=== PATIENT | male | born 1950 | race African-American/Black ===

== ENCOUNTER 2016-07-28 12:03 | Inpatient (IN) | payer OTHER ==
[~2016-07-28] VITALS: Ht 182.9 cm; Wt 152.9 kg
[2016-07-28] MEDS ORDERED: PANTOPRAZOLE SODIUM 40 MG/VIAL IV STA (13:35)
[2016-07-28] MEDS ORDERED: SODIUM CHLORIDE 0.9% 1,000 ML IV ONE (13:35)
[2016-07-28 14:26] LABS: BASOPHILS % 1.7 % (0.0-2.0); EOSINOPHILS % 2.4 % (0.0-5.0); HEMATOCRIT. 28.7 % (36.0-48.0); MEAN CORPUSCULAR HEMOGLOBIN 26.8 pg (28.0-32.0); MEAN CORPUSCULAR HGB CONC 31.5 g/dL (31.0-37.0); MONOCYTES % 13.3 % (2.0-8.0); NEUTROPHILS % 57.6 % (40.0-76.0); RED BLOOD CELL COUNT 3.38 mill/uL (4.2-5.4); RED CELL DISTRIBUTION WIDTH 15.8 % (11.6-14.6); WHITE BLOOD COUNT 9.7 x1000/uL (4.5-11.0)
[2016-07-28 14:27] LABS: DIFFERENTIAL COMMENT 1
[2016-07-28 14:33] LABS: PARTIAL THROMBOPLASTIN TIME 20.3 sec (24.0-34.0); PROTHROMBIN TIME 10.3 sec
[2016-07-28 14:36] LABS: ALANINE AMINOTRANSFERASE 17 IU/L (13-61); ALBUMIN 2.9 g/dL (3.4-5.0); ANION GAP 6; CALCIUM 8.6 mg/dL (8.5-10.1); CARBON DIOXIDE 35 mEq/L (21-32); CHLORIDE 106 mEq/L (98-107); INDEX HEMOLYSI 1 (1-3); INDEX ICTERIC 1 (1-4); INDEX LIPEMIC 1 (1-3); LIPASE 70 IU/L (73-393); UREA NITROGEN BLOOD 20 mg/dL (7-21); eGFR > 60 mL/min (>60)
[2016-07-28 14:39] LABS: TROPONIN I < 0.02 ng/mL (0.00-0.04)
[2016-07-28 15:09] LABS: PLATELET 208 x1000/uL (130-400)
[2016-07-28] MEDS ORDERED: PANTOPRAZOLE 80 MG in SODIUM CHLORIDE 0.9% 100 ML IV SCH (15:15)
[2016-07-28] MEDS ORDERED: PANTOPRAZOLE 80 MG in SODIUM CHLORIDE 0.9% 80 ML IV SCH (15:16)
[2016-07-28 18:00] VITALS: BP 127/79
[2016-07-28 18:15] VITALS: BP 142/83
[2016-07-28] MEDS ORDERED: ACETAMINOPHEN 325MG TABLET PO PRN (19:00)
[2016-07-28] MEDS ORDERED: MAGNESIUM/ALUMINUM HYDROXIDE/SIMETHICONE 30ML UDC PO PRN (19:00)
[2016-07-28] MEDS ORDERED: CLONIDINE 0.1MG TABLET PO PRN (19:00)
[2016-07-28] MEDS ORDERED: ONDANSETRON HCL 4MG/2ML VIAL IV PRN (19:00)
[2016-07-28] MEDS ORDERED: DIPHENHYDRAMINE 50MG/ML VIAL IV PRN (19:00)
[2016-07-28 20:00] VITALS: BP 136/85
[2016-07-28] MEDS: PANTOPRAZOLE SODIUM 40 MG/VIAL IV SCH (21:07)
[2016-07-28] MEDS: SODIUM CHLORIDE 0.9% 1,000 ML IV SCH (21:07)
[2016-07-28] MEDS ORDERED: ATOR80TA76 PO (22:12)
[2016-07-28] MEDS ORDERED: HYDR-4005 PO (22:12)
[2016-07-28] MEDS ORDERED: LOSA1TAB33 PO (22:12)
[2016-07-28] MEDS ORDERED: FERR-63 PO (22:12)
[2016-07-28] MEDS ORDERED: PANT40TA4 PO (22:12)
[2016-07-28 23:41] LABS: HEMATOCRIT 26.4 % (42.0-52.0); HEMOGLOBIN 8.5 g/dL (14.0-18.0); MEAN CORPUSCULAR HEMOGLOBIN 27.4 pg (28.0-32.0); MEAN CORPUSCULAR HGB CONC 32.1 g/dL (31.0-37.0); MEAN CORPUSCULAR VOLUME 85.2 fL (80.0-94.0); PLATELET 209 x1000/uL (130-400); RED CELL DISTRIBUTION WIDTH 15.8 % (11.6-14.6); WHITE BLOOD COUNT 10.1 x1000/uL (4.5-11.0)
[2016-07-29] VITALS: BP 109/81
[2016-07-29 04:00] VITALS: BP 106/65
[2016-07-29] MEDS: SODIUM CHLORIDE 0.9% 1,000 ML IV SCH ×2 (06:03→13:45)
[2016-07-29 08:11] LABS: HEMATOCRIT 25.7 % (42.0-52.0); HEMOGLOBIN 8.3 g/dL (14.0-18.0); MEAN CORPUSCULAR HEMOGLOBIN 27.3 pg (28.0-32.0); MEAN CORPUSCULAR HGB CONC 32.1 g/dL (31.0-37.0); MEAN CORPUSCULAR VOLUME 84.9 fL (80.0-94.0); PLATELET 206 x1000/uL (130-400); RED BLOOD CELL COUNT 3.03 mill/uL (4.7-6.1); RED CELL DISTRIBUTION WIDTH 15.9 % (11.6-14.6); WHITE BLOOD COUNT 9.2 x1000/uL (4.5-11.0)
[2016-07-29 08:30] VITALS: BP 127/77
[2016-07-29] MEDS: PANTOPRAZOLE SODIUM 40 MG/VIAL IV SCH (09:44)
[2016-07-29 12:00] VITALS: BP 147/97
[2016-07-29 16:00] VITALS: BP 143/82
[2016-07-29 16:22] VITALS: BP 143/82
== END 2016-07-29 16:43 | disposition home or self-care (01) | DRG 377 ==
LOC: EDSEX 13:36 → ER 13:36 → 7WST 15:40
PROVIDERS: ADMIT Internal Medicine; ATTEND Internal Medicine
DX: K92.2 Gastrointestinal hemorrhage, unspecified (principal); E43 Unspecified severe protein-calorie malnutrition; Z68.42 Body mass index [BMI] 45.0-49.9, adult; Z60.2 Problems related to living alone; D64.9 Anemia, unspecified; I10 Essential (primary) hypertension; K63.5 Polyp of colon; K29.70 Gastritis, unspecified, without bleeding; I51.7 Cardiomegaly; E78.00 Pure hypercholesterolemia, unspecified; Z87.891 Personal history of nicotine dependence; Z87.11 Personal history of peptic ulcer disease; Z79.899 Other long term (current) drug therapy; Z82.49 Family history of ischemic heart disease and other diseases of the circulatory system
CPT/HCPCS: 36415; 71010; 80053; 82270; 83690; 84484; 85025; 85027; 85610; 85730; 86850; 86900; 93005; 93970; 96365; 96366; 96367; 99291; C9113; J7030; J7050